=== PATIENT | female | born 1985 | race Caucasian/White ===

== ENCOUNTER 2017-03-23 18:58 | Emergency (ER) | payer MEDICAID, OTHER ==
[2017-03-23] MEDS ORDERED: Ativan 2 MG/1 ML VIAL IV ONE (19:14)
[2017-03-23] MEDS ORDERED: Ativan 2 MG/1 ML VIAL ONE (19:19)
[2017-03-23] MEDS ORDERED: BABY ASPIRIN 81 MG CHEW PO ONE (19:20)
--- NOTE | 2017-03-23 19:24 | ERPHSYRPT ---
- History of Present Illness Time Seen by Provider: 03/23/17 19:07 Historian: patient Exam Limitations: no limitations Patient Subjective Stated Complaint: PT REPORTS HEADACHE BEGINNING WITH SHARP STABBING PAIN IN RIGHT SIDE-REPORTS PROGRESSED TO CHEST PAIN ET LEFT SIDED JAW PAIN-STATES SHE HAD VISUAL CHANGES EARLIER-DENIES RECENT ILLNESS Triage Nursing Assessment: PT PINK WARM ET [id number] ALL QUESTIONS CORRECTLY-MOVING ALL EXTREMITIES WITH EASE-RESP EASY ET NONLABORED-PUPILS REACTIVE-NO FACIAL DROOP NOTED-LUNGS CLEAR ET EQUAL BILATERALLY Physician History: Pt started c/o palpitations, "fluttering feeling" followed by headaches, nausea and midsternal chest pain, radiating to her left chin. She took Ibuprofen, but did not relieve her pain, denies vomiting, cough, fever other complaints. Timing/Duration: hour(s) (1) Activities at Onset: none Quality: sharpness, stabbing Location: substernal Chest Pain Radiation: jaw Severity of Pain-Max: moderate Severity of Pain-Current: moderate Modifying Factors: Improves With: nothing Associated Symptoms: nausea, palpitations, shortness of breath, headache Prior Chest Pain/Cardiac Workup: angina Nitro Today/Relief: no nitro taken today Aspirin Treatment Today: no aspirin today Allergies/Adverse Reactions: hydromorphone HCl [From Dilaudid] Allergy (Mild, Verified 03/23/17 19:09) Hives morphine Allergy (Mild, Verified 03/23/17 19:09) Itching oxycodone HCl [From Percocet] Allergy (Mild, Verified 03/23/17 19:09) Hives Home Medications: Hydrochlorothiazide 25 mg [hydroDIURIL 25 MG] 25 mg PO DAILY 03/23/17 [ History] Lisinopril 20 mg [Zestril 20 MG] 20 mg PO DAILY 03/23/17 [History] Potassium Gluconate [Potassium] 600 mg PO DAILY 03/23/17 [History] Hx Tetanus, Diphtheria Vaccination/Date Given: No Hx Influenza Vaccination/Date Given: No Hx Pneumococcal Vaccination/Date Given: No Immunizations Up to Date: Yes - Review of Systems Constitutional: No Symptoms Respiratory: Dyspnea Cardiac: Chest Pain, Palpitations Neurological: Headache All Other Systems: Reviewed and Negative - Past Medical History Pertinent Past Medical History: Yes Neurological History: Migraines ENT History: No Pertinent History Cardiac History: Angina, Hypertension Respiratory History: Bronchitis, Pneumonia Endocrine Medical History: Hypoglycemia Musculoskeletal History: Fractures GI Medical History: Gallbladder Disease, Pancreatitis History: No Pertinent History Psycho-Social History: Anxiety, Panic Disorder Female Reproductive Disorders: No Pertinent History Other Medical History: POST 1 MONTH, LOW BS - Past Surgical History Past Surgical History: Yes Neuro Surgical History: No Pertinent History Cardiac: No Pertinent History Respiratory: No Pertinent History Gastrointestinal: Cholecystectomy Genitourinary: No Pertinent History Musculoskeletal: No Pertinent History Female Surgical History: Tubal Ligation Other Surgical History: ERCP - Social History Smoking Status: Former smoker How long have you smoked: 11 yrs Exposure to second hand smoke: No Drug Use: none Patient Lives Alone: No - Female History Hx Last Menstrual Period: CURRENT Hx Now: No - Nursing Vital Signs Nursing Vital Signs: Initial Vital Signs Temperature 98.9 F 03/23/17 19:03 Pulse Rate 90 03/23/17 19:03 Respiratory Rate 20 03/23/17 19:03 Blood Pressure 134/100 03/23/17 19:03 O2 Sat by Pulse Oximetry 99 03/23/17 19:03 Pain Scale Pain Intensity 4 - Physical Exam General Appearance: no apparent distress Eye Exam: PERRL/EOMI Ears, Nose, Throat Exam: normal ENT inspection, pharynx normal, other (no mastoid swelling or tenderness.) Neck Exam: normal inspection, non-tender, supple, No mass, No JVD Respiratory Exam: normal breath sounds, lungs clear, No chest tenderness Cardiovascular Exam: regular rate/rhythm, normal heart sounds, normal peripheral pulses, No murmur Gastrointestinal/Abdomen Exam: soft, normal bowel sounds, No tenderness Back Exam: normal inspection Extremity Exam: normal inspection Neurologic Exam: alert, oriented x 3, rules examiner II-XII nml as tested Skin Exam: normal color, warm, dry, No rash Lymphatic Exam: No adenopathy SpO2 Interpretation: normal SpO2: 99 Oxygen Delivery: Room Air - Course Nursing assessment & vital signs reviewed: Yes EKG Interpreted by Me: RATE (78/min), Sinus Rhythm, NORMAL AXIS, NORMAL INTERVALS, NORMAL ST-T - Radiology Exams Chest X-ray Interpretation: Interpreted by me, Negative - CT Exams Head CT Interpretation: Negative, Other (min. right mastoid opacification) Ordered Tests: Active Orders 24 hr Category Date Time Status Hydrator STAT Care 03/23/17 19:15 Active EKG-ER Only STAT Care 03/23/17 19:14 Active EKG-ER Only STAT Care 03/23/17 21:06 Active IV Insertion STAT Care 03/23/17 19:14 Active Oxygen-ED Only NASAL CANNULA 2 lpm Care 03/23/17 19:14 Active CHEST 2 VIEWS (PA AND LAT) Stat Exams 03/23/17 19:15 Taken HEAD WITHOUT CONTRAST [CT] Stat Exams 03/23/17 20:01 Taken CBC W DIFF Stat Lab 03/23/17 18:30 Completed CK-Creatinine Phosphokinase Stat Lab 03/23/17 18:30 Completed CMP Stat Lab 03/23/17 18:30 Completed D-DIMER QUANTITATION Stat Lab 03/23/17 19:30 Completed HCG,QUALITATIVE URINE Stat Lab 03/23/17 18:30 Completed LIPASE Stat Lab 03/23/17 18:30 Completed MAGNESIUM Stat Lab 03/23/17 18:30 Completed NT PRO BNP Stat Lab 03/23/17 18:30 Completed TROPONIN Q3H Lab 03/23/17 18:30 Completed TROPONIN Q3H Lab 03/23/17 21:19 Completed TROPONIN Q3H Lab 03/24/17 01:15 Ordered TROPONIN Q3H Lab 03/24/17 04:15 Ordered TROPONIN Q3H Lab 03/24/17 07:15 Ordered Medication Summary Generic Name Dose Route Start Last Admin Trade Name Freq PRN Reason Stop Dose Admin Amoxicillin 500 mg 03/23/17 22:24 Amoxil 500 Mg PO 03/23/17 22:25 STAT ONE Discontinued Medications Generic Name Dose Route Start Last Admin Trade Name Freq PRN Reason Stop Dose Admin Hydrocodone Bitart/Acetaminophen 1 tab 03/23/17 21:54 03/23/17 22:04 Mchenry 5/325 Mg PO 03/23/17 21:55 1 tab STAT ONE Administration Hydrocodone Bitart/Acetaminophen Confirm 03/23/17 21:59 Mchenry 5/325 Mg Administered 03/23/17 22:00 Dose 1 tab .ROUTE .STK-MED ONE Aspirin 324 mg 03/23/17 19:20 03/23/17 19:52 Baby Aspirin 81 Mg Chew PO 03/23/17 19:21 324 mg STAT ONE Administration Aspirin Confirm 03/23/17 19:51 Baby Aspirin 81 Mg Chew Administered 03/23/17 19:52 Dose 324 mg .ROUTE .STK-MED ONE Ketorolac Tromethamine 30 mg 03/23/17 20:32 03/23/17 20:38 Toradol 30 Mg Injection IV 03/23/17 20:33 30 mg STAT ONE Administration Ketorolac Tromethamine Confirm 03/23/17 20:37 Toradol 30 Mg Injection Administered 03/23/17 20:38 Dose 30 mg .ROUTE .STK-MED ONE Lorazepam 1 mg 03/23/17 19:14 03/23/17 19:52 Ativan 2 Mg/1 Ml Vial IV 03/23/17 19:15 1 mg STAT ONE Administration Lorazepam Confirm 03/23/17 19:19 Ativan 2 Mg/1 Ml Vial Administered 03/23/17 19:20 Dose 2 mg .ROUTE .STK-MED ONE Ondansetron HCl 4 mg 03/23/17 20:36 03/23/17 20:38 Zofran 4 Mg/2 Ml Vial IV 03/23/17 20:37 4 mg STAT ONE Administration Ondansetron HCl Confirm 03/23/17 20:37 Zofran 4 Mg/2 Ml Vial Administered 03/23/17 20:38 Dose 4 mg .ROUTE .STK-MED ONE Lab/Rad Data: Laboratory Result Diagrams 03/23/17 18:30 03/23/17 18:30 Laboratory Results 03/23/17 03/23/17 03/23/17 Range/Units 21:19 19:30 18:30 WBC (4.0-10.5) K/mm3 RBC (4.1-5.4) M/mm3 Hgb (12.0-16.0) gm/dl Hct (35-47) % MCV (78-100) fl MCH (26-32) pg MCHC (32-36) g/dl RDW (11.5-14.0) % Plt Count (150-450) K/mm3 MPV (6-9.5) fl Gran % (36.0-66.0) % Lymphocytes % (24.0-44.0) % Monocytes % (0.0-12.0) % Eosinophils % (0.00-5.0) % Basophils % (0.0-0.4) % Basophils # (0-0.4) D-Dimer 352.06 (0-500) ng/mL Sodium (136-145) mEq/L Potassium (3.5-5.1) mEq/L Chloride (98-107) mEq/L Carbon Dioxide (21-32) mEq/L Anion Gap (5-15) MEQ/L BUN (9-20) mg/dL Creatinine (0.55-1.30) mg/dl Estimated GFR ML/MIN Glucose (70-110) MG/DL Calcium (8.5-10.1) mg/dL Magnesium (1.8-2.4) mg/dL Total Bilirubin (0.2-1.0) mg/dL AST (15-37) U/L ALT (12-78) U/L Alkaline Phosphatase (46-116) U/L Creatine Kinase (26-192) U/L Troponin I < 0.017 < 0.017 (0.000-0.056) ng/ml NT-Pro-B Natriuret Pep (0-125) pg/ml Serum Total Protein (6.4-8.2) gm/dL Albumin (3.4-5.0) g/dL Lipase (73-393) U/L Urine HCG, Qual (Negative) 03/23/17 03/23/17 03/23/17 Range/Units 18:30 18:30 18:30 WBC 7.1 (4.0-10.5) K/mm3 RBC 4.21 (4.1-5.4) M/mm3 Hgb 13.5 (12.0-16.0) gm/dl Hct 40.0 (35-47) % MCV 95.0 (78-100) fl MCH 32.1 H (26-32) pg MCHC 33.8 (32-36) g/dl RDW 12.1 (11.5-14.0) % Plt Count 284 (150-450) K/mm3 MPV 9.0 (6-9.5) fl Gran % 50.8 (36.0-66.0) % Lymphocytes % 40.8 (24.0-44.0) % Monocytes % 6.3 (0.0-12.0) % Eosinophils % 1.7 (0.00-5.0) % Basophils % 0.4 (0.0-0.4) % Basophils # 0.03 (0-0.4) D-Dimer (0-500) ng/mL Sodium 140 (136-145) mEq/L Potassium 3.6 (3.5-5.1) mEq/L Chloride 103 (98-107) mEq/L Carbon Dioxide 27.8 (21-32) mEq/L Anion Gap 12.5 (5-15) MEQ/L BUN 14 (9-20) mg/dL Creatinine 0.88 (0.55-1.30) mg/dl Estimated GFR > 60 ML/MIN Glucose 80 (70-110) MG/DL Calcium 9.0 (8.5-10.1) mg/dL Magnesium 1.9 (1.8-2.4) mg/dL Total Bilirubin 0.20 (0.2-1.0) mg/dL AST 16 (15-37) U/L ALT 21 (12-78) U/L Alkaline Phosphatase 79 (46-116) U/L Creatine Kinase 95 (26-192) U/L Troponin I (0.000-0.056) ng/ml NT-Pro-B Natriuret Pep 59 (0-125) pg/ml Serum Total Protein 7.4 (6.4-8.2) gm/dL Albumin 3.9 (3.4-5.0) g/dL Lipase 108 (73-393) U/L Urine HCG, Qual NEGATIVE (Negative) - Progress Progress: improved, re-examined Air Movement: good Progress Note: 03/23/17 22:27 CT head negative, except mild right mastoid opacification, Chest X ray negative, repeat Ekg : NSR, no ST changes, second troponin negative , pain resolved, headaches improved.,Pt has been asleep, comfortable, easy to arouse, not lethargic, stable and afebrile. - Departure Time of Disposition: 22:29 Departure Disposition: Home Clinical Impression: Headache Qualifiers: Headache type: unspecified Headache chronicity pattern: unspecified pattern Intractability: not intractable Qualified Code(s): R51 - Headache Chest pain Qualifiers: Chest pain type: unspecified Qualified Code(s): R07.9 - Chest pain, unspecified Sinusitis Qualifiers: Sinusitis location: unspecified location Chronicity: acute Recurrence: non- recurrent Qualified Code(s): J01.90 - Acute sinusitis, unspecified Condition: Stable Critical Care Time: No Referrals: KEVIN PULIDO [Primary Care Provider] - Instructions: Atypical Chest Pain, Sinusitis in Adults, Sinusitis, Adult (DC) Additional Instructions: Rest x 2-3 days, drink plenty of fluids, return if severe headaches, chest pain , shortness of breath, vomiting, lethargy or fever> 103 F! Prescriptions: Amoxicillin 500 mg PO TID 10 Days #30 capsule Cetirizine HCl [Zyrtec] 10 mg PO DAILY 30 Days #30 tab.chew
[2017-03-23 19:39] LABS: BASOPHIL % 0.4 % (0.0-0.4); Basophil (Absolute #) 0.03 (0-0.4); Eosinophil % 1.7 % (0.00-5.0); Eosinophil (Absolute #) 0.12 (0-0.5); Granulocytes % 50.8 % (36.0-66.0); Hemoglobin 13.5 gm/dl (12.0-16.0); Lymphocytes % 40.8 % (24.0-44.0); Mean Corpuscular Hemoglobin 32.1 pg (26-32); Mean Corpuscular Hgb Concent. 33.8 g/dl (32-36); Monocyte (Absolute #) 0.45 (0.0-1.3); Monocytes % 6.3 % (0.0-12.0); Platelet Count 284 K/mm3 (150-450); Red Blood Count 4.21 M/mm3 (4.1-5.4); Red Cell Distribution Width 12.1 % (11.5-14.0); White Blood Count 7.1 K/mm3 (4.0-10.5)
[2017-03-23] MEDS ORDERED: BABY ASPIRIN 81 MG CHEW ONE (19:51)
[2017-03-23 20:24] LABS: ALBUMIN 3.9 g/dL (3.4-5.0); ALKALINE PHOSPHATASE 79 U/L (46-116); ANION GAP 12.5 MEQ/L (5-15); BLOOD UREA NITROGEN 14 mg/dL (9-20); CHLORIDE 103 mEq/L (98-107); CK-Creatinine Phosphokinase 95 U/L (26-192); Carbon Dioxide 27.8 mEq/L (21-32); Creatinine 1 0.88 mg/dl (0.55-1.30); EST GLOMERULAR FILTRATION RATE > 60 ML/MIN; Glucose 80 MG/DL (70-110); LIPASE 108 U/L (73-393); MAGNESIUM 1.9 mg/dL (1.8-2.4); NT PRO BNP 59 pg/ml (0-125); Potassium 3.6 mEq/L (3.5-5.1); SGOT/AST 16 U/L (15-37); SGPT/ALT 21 U/L (12-78); SODIUM 140 mEq/L (136-145); Total Protein 7.4 gm/dL (6.4-8.2)
[2017-03-23] MEDS ORDERED: TORAdol 30 mg Injection IV ONE (20:32)
[2017-03-23] MEDS ORDERED: Zofran 4 MG/2 ML VIAL IV ONE (20:36)
[2017-03-23] MEDS ORDERED: Zofran 4 MG/2 ML VIAL ONE (20:37)
[2017-03-23] MEDS ORDERED: TORAdol 30 mg Injection ONE (20:37)
[2017-03-23 21:33] VITALS: BP 109/67; PULSE 79
[2017-03-23] MEDS ORDERED: NORCO 5/325 MG PO ONE (21:54)
[2017-03-23] MEDS ORDERED: NORCO 5/325 MG ONE (21:59)
[2017-03-23] MEDS ORDERED: AMOXIL 500 MG PO ONE (22:24)
[2017-03-23 22:30] VITALS: O2SAT 99
[2017-03-23] MEDS ORDERED: AMOXIL 500 MG ONE (22:38)
--- NOTE | 2017-03-24 08:44 | XRAY ---
Indication: Chest pain. Comparison: October 15, 2012. PA/lateral chest obtained. Lateral view limited by respiration artifact. Otherwise grossly normal heart, lungs, and bony thorax.
--- NOTE | 2017-03-24 08:45 | XRAY ---
Indication: Headache, left-sided numbness, and dizziness 2 weeks. Multiple contiguous axial images obtained through the head without contrast. Comparison: None Normal appearing brain parenchyma, ventricles, and bony calvarium. Partial opacification of the right mastoid air cells. Remaining visualized paranasal sinuses and left mastoid air cells clear. Impression: Partial opacification of the right mastoid air cells presumed inflammatory. No acute intracranial abnormalities. CT DI 70.31
== END 2017-03-23 22:46 | disposition home or self-care (01) ==
LOC: ED 18:58
DX: R51 Headache (principal); R07.9 Chest pain, unspecified; J01.90 Acute sinusitis, unspecified; I10 Essential (primary) hypertension; F41.9 Anxiety disorder, unspecified; Z79.899 Other long term (current) drug therapy
CPT/HCPCS: 36000; 36415; 70450; 71046; 80053; 82550; 83690; 83735; 83880; 84484; 84703; 85025; 85379; 93005; 93041; 99284; J1885; J2060; J2405; A9270-GY

== ENCOUNTER 2017-05-17 12:31 | Emergency (ER) | payer OTHER ==
[2017-05-17] MEDS ORDERED: TORAdol 30 mg Injection IM ONE (13:09)
--- NOTE | 2017-05-17 13:15 | ERPHSYRPT ---
- History of Present Illness Time Seen by Provider: 05/17/17 13:05 Source: patient Patient Subjective Stated Complaint: pt reports vomiting a few times yesterday- woke this morning with a sore throat-states she can not swallow her pills- states it feels like she ripped something in throat Triage Nursing Assessment: pt pink warm and dry-no drooling noted-pt talkative in complete sentences with no coughing-no difficutly noted-no drooling noted Physician History: CC: sore throat Hx: 31 y/o patient of Dr Pulido. She had vomiting and diarrhea yesterday. Today has sore throat. Feels pain with swallowing. No fever or chills. States not . No diff breathing. Pain in her throat is severe. Severity: severe ENT Location: throat Allergies/Adverse Reactions: hydromorphone HCl [From Dilaudid] Allergy (Mild, Verified 05/17/17 12:39) Hives morphine Allergy (Mild, Verified 05/17/17 12:39) Itching oxycodone HCl [From Percocet] Allergy (Mild, Verified 05/17/17 12:39) Hives Home Medications: Hydrochlorothiazide 25 mg [hydroDIURIL 25 MG] 25 mg PO DAILY 03/23/17 [ History] Lisinopril 20 mg [Zestril 20 MG] 20 mg PO DAILY 03/23/17 [History] Potassium Gluconate [Potassium] 600 mg PO DAILY 03/23/17 [History] Escitalopram Oxalate 10 mg [Lexapro 10 MG] 10 mg PO DAILY 05/17/17 [History] Metoprolol Succinate 50 mg [Toprol Xl 50 MG] 50 mg PO DAILY 05/17/17 [ History] Hx Tetanus, Diphtheria Vaccination/Date Given: No Hx Influenza Vaccination/Date Given: No Hx Pneumococcal Vaccination/Date Given: No Immunizations Up to Date: Yes - Review of Systems Constitutional: No Fever, No Chills Eyes: No Symptoms Ears, Nose, & Throat: Throat Pain Respiratory: No Cough, No Dyspnea Cardiac: No Chest Pain Abdominal/Gastrointestinal: Vomiting (X1 yesterday), Diarrhea (yesterday), No Abdominal Pain Skin: No Rash Neurological: No Headache All Other Systems: Reviewed and Negative - Past Medical History Pertinent Past Medical History: Yes Neurological History: Migraines ENT History: No Pertinent History Cardiac History: Angina, Hypertension Respiratory History: Bronchitis, Pneumonia Endocrine Medical History: Hypoglycemia Musculoskeletal History: Fractures GI Medical History: Gallbladder Disease, Pancreatitis History: No Pertinent History Psycho-Social History: Anxiety, Panic Disorder Female Reproductive Disorders: No Pertinent History Other Medical History: POST 1 MONTH, LOW BS - Past Surgical History Past Surgical History: Yes Neuro Surgical History: No Pertinent History Cardiac: No Pertinent History Respiratory: No Pertinent History Gastrointestinal: Cholecystectomy Genitourinary: No Pertinent History Musculoskeletal: No Pertinent History Female Surgical History: Tubal Ligation Other Surgical History: ERCP - Social History Smoking Status: Former smoker How long have you smoked: yrs Exposure to second hand smoke: No Drug Use: none Patient Lives Alone: No - Female History Hx Now: No - Nursing Vital Signs Nursing Vital Signs: Initial Vital Signs Temperature 98.3 F 05/17/17 12:34 Pulse Rate 94 H 05/17/17 12:34 Respiratory Rate 18 05/17/17 12:34 Blood Pressure 157/96 05/17/17 12:34 O2 Sat by Pulse Oximetry 97 05/17/17 12:34 Pain Scale Pain Intensity 5 - Physical Exam General Appearance: alert Eye Exam: bilateral eye: PERRL, EOMI Nasal Exam: normal inspection Throat Exam: moist mucus membranes, pharynx tenderness (erythema), No tonsillar exudate, No uvula swelling, No voice changes Neck Exam: normal inspection, non-tender, supple, lymphadenopathy (R), lymphadenopathy (L) Cardiovascular/Respiratory Exam: normal breath sounds, regular rate/rhythm Abdominal Exam: non-tender, soft, no organomegaly Neurologic Exam: alert, oriented x 3, cooperative Skin Exam: warm, dry, No rash SpO2 Interpretation: normal SpO2: 97 Oxygen Delivery: Room Air - Course Nursing assessment & vital signs reviewed: Yes Ordered Tests: Active Orders 24 hr Category Date Time Status IV Insertion STAT Care 05/17/17 13:53 Active NECK SOFT TISSUE Stat Exams 05/17/17 13:08 Completed NECK WITH CONTRAST [CT] Stat Exams 05/17/17 13:53 Completed BLOOD CULTURE Stat Lab 05/17/17 14:00 Received BMP Stat Lab 05/17/17 14:00 Completed CBC W DIFF Stat Lab 05/17/17 14:00 Completed HCG QUALITATIVE,SERUM Stat Lab 05/17/17 14:00 Completed STREP SCREEN-BETA A Stat Lab 05/17/17 13:27 Completed Medication Summary Discontinued Medications Generic Name Dose Route Start Last Admin Trade Name Soha PRN Reason Stop Dose Admin Ceftriaxone Sodium/Dextrose 1 g in 50 mls @ 100 mls/hr 05/17/17 13:53 14:11 Rocephin 1 Gm-D5w 50 Ml Bag IV 05/17/17 14:22 100 mls/hr STAT STA Administration Ceftriaxone Sodium/Dextrose Confirm 05/17/17 14:06 Rocephin 1 Gm-D5w 50 Ml Bag Administered 05/17/17 14:07 Dose 1 g in 50 mls @ ud IV .STK-MED ONE Ketorolac Tromethamine 60 mg 05/17/17 13:09 05/17/17 13:36 Toradol 30 Mg Injection IM 05/17/17 13:10 60 mg STAT ONE Administration Ketorolac Tromethamine Confirm 05/17/17 13:33 Toradol 30 Mg Injection Administered 05/17/17 13:34 Dose 60 mg .ROUTE .STK-MED ONE Lab/Rad Data: Laboratory Result Diagrams 05/17/17 14:00 05/17/17 14:00 Laboratory Results 05/17/17 05/17/17 05/17/17 Range/Units 14:00 14:00 14:00 WBC 12.5 H (4.0-10.5) K/mm3 RBC 4.19 (4.1-5.4) M/mm3 Hgb 13.9 (12.0-16.0) gm/dl Hct 41.5 (35-47) % MCV 99.0 (78-100) fl MCH 33.2 H (26-32) pg MCHC 33.5 (32-36) g/dl RDW 12.7 (11.5-14.0) % Plt Count 221 (150-450) K/mm3 MPV 9.1 (6-9.5) fl Gran % 79.4 H (36.0-66.0) % Eos # (Auto) 0.07 (0-0.5) Absolute Lymphs (auto) 1.64 (1.0-4.6) Absolute Monos (auto) 0.82 (0.0-1.3) Lymphocytes % 13.2 L (24.0-44.0) % Monocytes % 6.6 (0.0-12.0) % Eosinophils % 0.6 (0.00-5.0) % Basophils % 0.2 (0.0-0.4) % Absolute Granulocytes 9.90 H (1.4-6.9) Basophils # 0.02 (0-0.4) Sodium 139 (137-145) mmol/L Potassium 3.5 (3.5-5.1) mmol/L Chloride 102 (98-107) mmol/L Carbon Dioxide 28 (22-30) mmol/L Anion Gap 12.8 (5-15) MEQ/L BUN 11 (7-17) mg/dL Creatinine 0.68 (0.52-1.04) mg/dL Estimated GFR > 60.0 ML/MIN Glucose 95 (74-106) mg/dL Calcium 8.8 (8.4-10.2) mg/dL Serum , Qual NEGATIVE (Negative) Streptococcus Screen (Negative) 05/17/17 Range/Units 13:27 WBC (4.0-10.5) K/mm3 RBC (4.1-5.4) M/mm3 Hgb (12.0-16.0) gm/dl Hct (35-47) % MCV (78-100) fl MCH (26-32) pg MCHC (32-36) g/dl RDW (11.5-14.0) % Plt Count (150-450) K/mm3 MPV (6-9.5) fl Gran % (36.0-66.0) % Eos # (Auto) (0-0.5) Absolute Lymphs (auto) (1.0-4.6) Absolute Monos (auto) (0.0-1.3) Lymphocytes % (24.0-44.0) % Monocytes % (0.0-12.0) % Eosinophils % (0.00-5.0) % Basophils % (0.0-0.4) % Absolute Granulocytes (1.4-6.9) Basophils # (0-0.4) Sodium (137-145) mmol/L Potassium (3.5-5.1) mmol/L Chloride (98-107) mmol/L Carbon Dioxide (22-30) mmol/L Anion Gap (5-15) MEQ/L BUN (7-17) mg/dL Creatinine (0.52-1.04) mg/dL Estimated GFR ML/MIN Glucose (74-106) mg/dL Calcium (8.4-10.2) mg/dL Serum , Qual (Negative) Streptococcus Screen POSITIVE (Negative) - Progress Progress Note: 05/17/17 13:59 soft tissue neck xray: AP/lateral neck obtained with special attention the soft tissues demonstrates prominent epiglottis concerning for epiglottitis. Remaining supra and infraglottic airway widely patent. Underlying cervical spine intact. 05/17/17 15:47 CT neck: 1. Soft tissue mass at the base of the vallecula contiguous with the epiglottis. Direct laryngoscopy recommended. Pt stable. Airway intact. Rocephin given. No ENT here. Taylor Brennan and Dr Connelly ENT can see pt now and hospitalist Dr Quarles agrees to accept transfer for direct lanryngoscopy. Counseled pt/family regarding: lab results, diagnosis, need for follow-up, rad results - Departure Time of Disposition: 15:49 Departure Disposition: Transfer ([facility]) Clinical Impression: Strep pharyngitis, epiglottitis vs laryngeal mass Condition: Stable Critical Care Time: No Referrals: CORINA PULIDO [Primary Care Provider] -
[2017-05-17] MEDS ORDERED: TORAdol 30 mg Injection ONE (13:33)
--- NOTE | 2017-05-17 13:38 | XRAY ---
Indication: Sore throat, nausea, vomiting, diarrhea. Comparison: None AP/lateral neck obtained with special attention the soft tissues demonstrates prominent epiglottis concerning for epiglottitis. Remaining supra and infraglottic airway widely patent. Underlying cervical spine intact.
[2017-05-17] MEDS ORDERED: ROCEPHIN 1 Gm-D5w 50 ml Bag** 1 G/50 ML IVPB IV STA (13:53)
[2017-05-17 14:04] LABS: BASOPHIL % 0.2 % (0.0-0.4); Basophil (Absolute #) 0.02 (0-0.4); Eosinophil % 0.6 % (0.00-5.0); Eosinophil (Absolute #) 0.07 (0-0.5); Granulocytes % 79.4 % (36.0-66.0); Hematocrit 41.5 % (35-47); Hemoglobin 13.9 gm/dl (12.0-16.0); Lymphocyte (Absolute #) 1.64 (1.0-4.6); Lymphocytes % 13.2 % (24.0-44.0); Mean Corpuscular Hemoglobin 33.2 pg (26-32); Mean Corpuscular Hgb Concent. 33.5 g/dl (32-36); Mean Platelet Volume 9.1 fl (6-9.5); Monocyte (Absolute #) 0.82 (0.0-1.3); Monocytes % 6.6 % (0.0-12.0); Platelet Count 221 K/mm3 (150-450); Red Blood Count 4.19 M/mm3 (4.1-5.4); Red Cell Distribution Width 12.7 % (11.5-14.0); White Blood Count 12.5 K/mm3 (4.0-10.5)
[2017-05-17] MEDS ORDERED: ROCEPHIN 1 Gm-D5w 50 ml Bag** 1 G/50 ML IVPB IV ONE (14:06)
[2017-05-17 14:21] LABS: ANION GAP 12.8 MEQ/L (5-15); BLOOD UREA NITROGEN 11 mg/dL (7-17); CHLORIDE 102 mmol/L (98-107); Calcium 8.8 mg/dL (8.4-10.2); Carbon Dioxide 28 mmol/L (22-30); Creatinine 1 0.68 mg/dL (0.52-1.04); Glucose 95 mg/dL (74-106); Potassium 3.5 mmol/L (3.5-5.1); SODIUM 139 mmol/L (137-145)
[2017-05-17 14:41] VITALS: BP 111/52
--- NOTE | 2017-05-17 14:58 | XRAY ---
Indication: Sore throat, diarrhea, vomiting, nausea. Multiple contiguous axial images obtained through the neck using 80 cc Isovue 370 contrast. Comparison: None There is a noncalcified soft tissue mass at the base of the vallecula contiguous with the epiglottis. It measures approximately 1.7 x 2.4 x 2.6 cm in AP, transverse, and CC projections. Prominent bilateral palatine tonsils and adenoids slightly narrows the nasopharynx. Infraglottic airway widely patent. There are several scattered small bilateral cervical lymph nodes, largest node level I on the left at the carotid bifurcation measuring 1.2 x 1.7 cm. Parotid and submandibular glands are bilaterally symmetric. Major arteries and veins are normal in course and caliber. Thyroid gland enhances homogeneously. Visualized cervical spine intact with lordotic reversal presumed positional. Base of the brain and lung apices unremarkable. Impression: 1. Soft tissue mass at the base of the vallecula contiguous with the epiglottis. Direct laryngoscopy recommended. 2. Prominent palatine tonsils and adenoids. 3. Scattered small nonspecific cervical lymph nodes bilaterally. CT DI 28.84
[2017-05-17 16:13] VITALS: PULSE 82; O2SAT 96
== END 2017-05-17 16:23 | disposition short-term general hospital (02) ==
LOC: ED 12:31
DX: J02.0 Streptococcal pharyngitis (principal); J38.7 Other diseases of larynx; Z79.899 Other long term (current) drug therapy
CPT/HCPCS: 36000; 36415; 70360; 70491; 80048; 84703; 85025; 87040; 87430; 96365; 96372; 99285; J0696; J1885

== ENCOUNTER 2017-05-27 21:46 | Emergency (ER) | payer OTHER ==
--- NOTE | 2017-05-27 22:26 | ERPHSYRPT ---
- History of Present Illness Time Seen by Provider: 05/27/17 22:20 Source: patient Exam Limitations: no limitations Patient Subjective Stated Complaint: pain to left side of neck.. states was seen here 2 weeks ago here for same and spent 2 days in ICU for unable to swallow. was then transfered to [facility] to seen and ENT specialist., swelling and pain to left side increasing today with pain. has appt with ENT for follow up monday Triage Nursing Assessment: alert. able to breath with no difficulty. pain when moving neck able to swallow with slight difficulty. noted swelling to left neck and under jaw. pain with moving head. denies fever. pain on palpation. Physician History: pt admitted to [facility] about 2 weeks ago for same and pain has recurred increased today able to still swallow - will need to repeat CT adn discussed with pt and she wishes this route - still on antibiotics Severity: moderate Prearrival Treatment: prescription meds Modifying Factors: Improves With: nothing Associated Symptoms: ear pain (R), neck pain, swollen glands, sore throat, No difficulty swallowing, No voice change Allergies/Adverse Reactions: hydromorphone HCl [From Dilaudid] Allergy (Mild, Verified 05/17/17 12:39) Hives morphine Allergy (Mild, Verified 05/17/17 12:39) Itching oxycodone HCl [From Percocet] Allergy (Mild, Verified 05/17/17 12:39) Hives Home Medications: Hydrochlorothiazide 25 mg [hydroDIURIL 25 MG] 25 mg PO DAILY 03/23/17 [ History] Lisinopril 20 mg [Zestril 20 MG] 20 mg PO DAILY 03/23/17 [History] Potassium Gluconate [Potassium] 600 mg PO DAILY 03/23/17 [History] Escitalopram Oxalate 10 mg [Lexapro 10 MG] 10 mg PO DAILY 05/17/17 [History] Metoprolol Succinate 50 mg [Toprol Xl 50 MG] 50 mg PO DAILY 05/17/17 [ History] Hx Tetanus, Diphtheria Vaccination/Date Given: No Hx Influenza Vaccination/Date Given: No Hx Pneumococcal Vaccination/Date Given: No Immunizations Up to Date: Yes - Review of Systems Constitutional: No Fever, No Chills Eyes: No Symptoms Ears, Nose, & Throat: No Symptoms Respiratory: No Cough, No Dyspnea Cardiac: No Chest Pain, No Edema, No Syncope Abdominal/Gastrointestinal: No Abdominal Pain, No Nausea, No Vomiting, No Diarrhea Genitourinary Symptoms: No Dysuria Musculoskeletal: No Back Pain, No Neck Pain Skin: No Rash Neurological: No Dizziness, No Focal Weakness, No Sensory Changes Psychological: No Symptoms Endocrine: No Symptoms All Other Systems: Reviewed and Negative - Past Medical History Pertinent Past Medical History: Yes Neurological History: Migraines ENT History: No Pertinent History Cardiac History: Angina, Hypertension Respiratory History: Bronchitis, Pneumonia Endocrine Medical History: Hypoglycemia Musculoskeletal History: Fractures GI Medical History: Gallbladder Disease, Pancreatitis History: No Pertinent History Psycho-Social History: Anxiety, Panic Disorder Female Reproductive Disorders: No Pertinent History Other Medical History: POST 1 MONTH, LOW BS - Past Surgical History Past Surgical History: Yes Neuro Surgical History: No Pertinent History Cardiac: No Pertinent History Respiratory: No Pertinent History Gastrointestinal: Cholecystectomy Genitourinary: No Pertinent History Musculoskeletal: No Pertinent History Female Surgical History: Tubal Ligation Other Surgical History: ERCP - Social History Smoking Status: Current every day smoker How long have you smoked: yrs Exposure to second hand smoke: No Drug Use: none Patient Lives Alone: No - Female History Hx Now: No - Nursing Vital Signs Nursing Vital Signs: Initial Vital Signs Temperature 98.5 F 05/27/17 21:55 Pulse Rate 86 05/27/17 21:55 Respiratory Rate 18 05/27/17 21:55 Blood Pressure 139/96 05/27/17 21:55 O2 Sat by Pulse Oximetry 98 05/27/17 21:55 Pain Scale Pain Intensity 9 - Physical Exam General Appearance: no apparent distress, alert Eye Exam: bilateral eye: PERRL, EOMI Ear Exam: bilateral ear: auricle normal, canal normal, TM normal Nasal Exam: normal inspection Throat Exam: pharynx normal, moist mucus membranes, No tonsillar exudate Neck Exam: supple, lymphadenopathy (R), lymphadenopathy (L), tender lateral Cardiovascular/Respiratory Exam: normal breath sounds, regular rate/rhythm Abdominal Exam: non-tender, soft Neurologic Exam: alert, oriented x 3, sensation nml, No motor deficits Skin Exam: normal color, warm, dry SpO2 Interpretation: normal SpO2: 98 Oxygen Delivery: Room Air - Course Nursing assessment & vital signs reviewed: Yes Ordered Tests: Active Orders 24 hr Category Date Time Status IV Insertion STAT Care 05/27/17 23:01 Active NECK WITH CONTRAST [CT] Stat Exams 05/27/17 22:30 Ordered BMP Stat Lab 05/27/17 22:55 Completed CBC W DIFF Stat Lab 05/27/17 22:55 Completed Medication Summary Generic Name Dose Route Start Last Admin Trade Name Soha PRN Reason Stop Dose Admin Ceftriaxone Sodium/Dextrose 1 g in 50 mls @ 100 mls/hr 05/28/17 00:28 00:41 Rocephin 1 Gm-D5w 50 Ml Bag IV 05/28/17 00:57 100 mls/hr STAT STA Administration Discontinued Medications Generic Name Dose Route Start Last Admin Trade Name Freq PRN Reason Stop Dose Admin Dexamethasone Sodium Phosphate 10 mg 05/28/17 00:28 05/28/17 00:41 Decadron 10mg Inj. IV 05/28/17 00:29 10 mg STAT ONE Administration Dexamethasone Sodium Phosphate Confirm 05/28/17 00:34 Decadron 10mg Inj. Administered 05/28/17 00:35 Dose 10 mg .ROUTE .STK-MED ONE Ceftriaxone Sodium/Dextrose Confirm 05/28/17 00:35 Rocephin 1 Gm-D5w 50 Ml Bag Administered 05/28/17 00:36 Dose 1 g in 50 mls @ ud IV .STK-MED ONE Ketorolac Tromethamine 30 mg 05/27/17 23:00 05/27/17 23:15 Toradol 30 Mg Injection IV 05/27/17 23:01 30 mg STAT ONE Administration Ketorolac Tromethamine Confirm 05/27/17 23:07 Toradol 30 Mg Injection Administered 05/27/17 23:08 Dose 30 mg .ROUTE .STK-MED ONE Lab/Rad Data: Laboratory Result Diagrams 05/27/17 22:55 05/27/17 22:55 Laboratory Results 05/27/17 05/27/17 Range/Units 22:55 22:55 WBC 9.9 (4.0-10.5) K/mm3 RBC 4.29 (4.1-5.4) M/mm3 Hgb 14.3 (12.0-16.0) gm/dl Hct 42.0 (35-47) % MCV 97.9 (78-100) fl MCH 33.3 H (26-32) pg MCHC 34.0 (32-36) g/dl RDW 12.6 (11.5-14.0) % Plt Count 305 (150-450) K/mm3 MPV 8.9 (6-9.5) fl Gran % 47.8 (36.0-66.0) % Eos # (Auto) 0.19 (0-0.5) Absolute Lymphs (auto) 4.12 (1.0-4.6) Absolute Monos (auto) 0.83 (0.0-1.3) Lymphocytes % 41.5 (24.0-44.0) % Monocytes % 8.4 (0.0-12.0) % Eosinophils % 1.9 (0.00-5.0) % Basophils % 0.4 (0.0-0.4) % Absolute Granulocytes 4.75 (1.4-6.9) Basophils # 0.04 (0-0.4) Sodium 139 (137-145) mmol/L Potassium 3.3 L (3.5-5.1) mmol/L Chloride 101 (98-107) mmol/L Carbon Dioxide 27 (22-30) mmol/L Anion Gap 13.4 (5-15) MEQ/L BUN 17 (7-17) mg/dL Creatinine 0.71 (0.52-1.04) mg/dL Estimated GFR > 60.0 ML/MIN Glucose 87 (74-106) mg/dL Calcium 8.8 (8.4-10.2) mg/dL - Progress Progress: improved, re-examined Progress Note: 05/28/17 00:[address] or imaging at this time - pt is advised that we cannot tell if her condition is worsening and that abscess or airway compromise including could occur unpredictably but she wishes to decline imaging and instead have more steroids and f/u with her ENT this week and return of see ER meantim if any further problems/ and she has the capcity to make that choice; she is swallowing OK in ER at this time; no stridor or wheezing 05/28/17 00:55 05/28/17 00:59 Counseled pt/family regarding: lab results, diagnosis, need for follow-up, rad results - Departure Time of Disposition: 00:55 Departure Disposition: Home Clinical Impression: Strep pharyngitis, subtonsilar mass by history Condition: Good Critical Care Time: No Referrals: HARI JAMES, MANAGER [employer] DEL[employer]ERY [Primary Care Provider] - Additional Instructions: followup with your ENT and other Drs. as soon as possible We have given you additional steroids as this has helped your condition before- see your Dr. to determine which additional antibiotics to continue on we will add [id number] for now . return meantime if any concerns- trouble breathing or swallowing or other concerns meantime. Prescriptions: Amox Tr/Potass Clav. 250 mg [Augmentin 250-62.5 Suspen] 500 mg PO TID # 120 bottle Methylprednisolone [Medrol Dose Pack] 4 mg PO UD #1 tab
[2017-05-27] MEDS ORDERED: TORAdol 30 mg Injection IV ONE (23:00)
[2017-05-27 23:05] LABS: BASOPHIL % 0.4 % (0.0-0.4); Basophil (Absolute #) 0.04 (0-0.4); Eosinophil % 1.9 % (0.00-5.0); Eosinophil (Absolute #) 0.19 (0-0.5); Granulocyte Absolute (ANC) 4.75 (1.4-6.9); Granulocytes % 47.8 % (36.0-66.0); Hemoglobin 14.3 gm/dl (12.0-16.0); Lymphocyte (Absolute #) 4.12 (1.0-4.6); Lymphocytes % 41.5 % (24.0-44.0); Mean Cell Volume 97.9 fl (78-100); Mean Corpuscular Hemoglobin 33.3 pg (26-32); Mean Platelet Volume 8.9 fl (6-9.5); Monocyte (Absolute #) 0.83 (0.0-1.3); Monocytes % 8.4 % (0.0-12.0); Platelet Count 305 K/mm3 (150-450); Red Blood Count 4.29 M/mm3 (4.1-5.4); Red Cell Distribution Width 12.6 % (11.5-14.0); White Blood Count 9.9 K/mm3 (4.0-10.5)
[2017-05-27] MEDS ORDERED: TORAdol 30 mg Injection ONE (23:07)
[2017-05-27 23:25] LABS: ANION GAP 13.4 MEQ/L (5-15); BLOOD UREA NITROGEN 17 mg/dL (7-17); CHLORIDE 101 mmol/L (98-107); Calcium 8.8 mg/dL (8.4-10.2); Carbon Dioxide 27 mmol/L (22-30); Creatinine 1 0.71 mg/dL (0.52-1.04); Glucose 87 mg/dL (74-106); Potassium 3.3 mmol/L (3.5-5.1); SODIUM 139 mmol/L (137-145)
[2017-05-28] MEDS ORDERED: DECADRON 10MG INJ. IV ONE (00:28)
[2017-05-28] MEDS ORDERED: ROCEPHIN 1 Gm-D5w 50 ml Bag** 1 G/50 ML IVPB IV STA (00:28)
[2017-05-28 00:29] VITALS: O2SAT 98
[2017-05-28] MEDS ORDERED: DECADRON 10MG INJ. ONE (00:34)
[2017-05-28] MEDS ORDERED: ROCEPHIN 1 Gm-D5w 50 ml Bag** 1 G/50 ML IVPB IV ONE (00:35)
[2017-05-28 01:29] VITALS: BP 128/78; PULSE 68
== END 2017-05-28 01:37 | disposition home or self-care (01) ==
LOC: ED 21:46
DX: J02.0 Streptococcal pharyngitis (principal); J35.8 Other chronic diseases of tonsils and adenoids
CPT/HCPCS: 36000; 36415; 80048; 85025; 96360; 96374; 96375; 99283; 99284; J0696; J1100; J1885